=== PATIENT | female | born 1990 | race Caucasian/White ===

== ENCOUNTER → 2017-04-01 | Outpatient (CLI) | payer BC, OTHER ==
--- NOTE | 2017-04-01 10:22 | US ---
EXAM DESCRIPTION: Soft Tissue,Abdomen CLINICAL HISTORY: 26 years Female, Generalized abdominal pain, LLQ COMPARISON: None. FINDINGS: Evaluation of the left lower quadrant of the abdomen transabdominally was performed with attention to the area of pain. Imaging was extended the to the level of the rectus muscle and the anterior abdominal wall but intrapelvic or intra-abdominal evaluation was not accomplished. The overlying skin and subcutaneous structures as well as the muscular layer presumably representing the left rectus muscle appears normal without evidence of hematoma or seroma or fluid collection or mass. IMPRESSION: Normal examination of the left lower quadrant anterior abdominal and pelvic wall. Electronically signed by: Vamsi Byrne MD 04/01/2017 10:21 AM CDT
== END | disposition home or self-care (01) ==
LOC: US 09:06
PROVIDERS: ATTEND Surgery
DX: R10.814 Left lower quadrant abdominal tenderness (principal)